=== PATIENT | female | born 1960 | race Caucasian/White ===

== ENCOUNTER 2016-07-25 21:15 | Emergency (ER) | payer OTHER ==
[2016-07-25 21:29] LABS: EOSINOPHIL (%) 0.2 % (0-5); HEMATOCRIT 41.4 % (36.0-46.0); IMMATURE GRANULOCYTE (%) 0.5 % (0.0-0.7); IMMATURE GRANULOCYTE COUNT 0.1 K/uL; MCHC 34.5 G/DL (30.0-36.0); MCV 86.8 FL (83-99); MEAN PLAT.VOLUME 10.3 uM^3 (9.5-12.4); MONOCYTE (%) 7.2 % (3-12); MONOCYTE COUNT 0.8 K/uL (0-0.8); PLATELET COUNT 239 K/uL (156-360); RBC DIS.WIDTH-CV 13.5 % (11.8-14.6); RBC DIS.WIDTH-SD 43.2 % (39-53); RED BLOOD COUNT 4.77 M/uL (3.80-5.20); WHITE BLOOD COUNT 10.9 K/uL (4.1-10.2)
[2016-07-25 21:41] LABS: AMYLASE 47 IU/L (1-118); CHLORIDE 108 mEq/L (99-109); POTASSIUM 3.4 mEq/L (3.7-5.4); SODIUM 142 mEq/L (136-147)
[2016-07-25 21:43] LABS: GLUCOSE 104 mg/dL (70-99)
[2016-07-25 21:44] LABS: ANION GAP 14 MEQ/L (2-14)
[2016-07-25 21:46] LABS: SERUM ETHYL ALCOHOL < 10 mg/dL
[2016-07-25 21:48] LABS: UREA NITROGEN (BUN) 18 mg/dL (9-23)
[2016-07-25 21:49] LABS: GFR ESTIMATE (CALCULATED) > 59 mL/min/
[2016-07-25 21:50] LABS: LIPASE 21 U/L (1.0-51.0)
[2016-07-25 21:56] LABS: QUANTITATIVE HCG < 4.0 MIU/ML
[2016-07-25 22:14] LABS: TROP-I INTERPRETATION NEGATIVE; TROPONIN-I < 0.01 ng/mL (0.0-0.30)
[2016-07-25] MEDS ORDERED: PERCOCET 5/31 TABLET PO (23:00)
[2016-07-25] MEDS ORDERED: ZOFRAN ODT4 MG PO (23:06)
== END 2016-07-26 00:08 | disposition home or self-care (01) ==
LOC: TRA 21:15
PROVIDERS: Emergency Medicine
DX: R55 Syncope and collapse (principal); S93.402A Sprain of unspecified ligament of left ankle, initial encounter; V28.1XXA Motorcycle passenger injured in noncollision transport accident in nontraffic accident, initial encounter; Y92.488 Other paved roadways as the place of occurrence of the external cause; S20.91XA Abrasion of unspecified parts of thorax, initial encounter; S00.81XA Abrasion of other part of head, initial encounter; S60.511A Abrasion of right hand, initial encounter; S60.512A Abrasion of left hand, initial encounter; S80.211A Abrasion, right knee, initial encounter
CPT/HCPCS: 70450; 70486; 71010; 71260; 72125; 72129; 72132; 72170; 73610; 74177; 80048; 81003; 82150; 83690; 84484; 84702; 85025; 86850; 86900; 86901; 93005; 99281; 99285; G0480; J2405; J3010